=== PATIENT | male | born 2000 | race African-American/Black ===

== ENCOUNTER 2023-10-22 04:32 | Emergency (ER) | payer OTHER ==
--- NOTE | 2023-10-22 04:38 | ED Physician Documentation ---
History of Present Illness - Stated complaint Stated Complaint: SINUS PX, SORE THROAT - Additonal information Additional information: 23-year-old male presents with sinus pain and sore throat. History clarified from triage notes. Patient states that for the last week, he has had mild cough, with sore throat, subjective fever. No trismus, drooling, voice changes, shortness of breath, visual changes or eye pain, ear pain, neck symptoms, photophobia, rash. He has nausea without vomiting. No recent antibiotics. No antibiotic allergies. He states he is overall healthy otherwise. No other new concerns. ROS Constitutional: +subjective fever, no chills Eyes: no visual disturbance, no discharge Ears, Nose, Mouth, Throat: no rhinorrhea, + sore throat Cardiovascular: no chest pain, no palpitations Respiratory: + cough, no shortness of breath Gastrointestinal: no abdominal pain, no vomiting, no diarrhea Genitourinary: no dysuria, no hematuria Musculoskeletal: no back pain, no neck stiffness Skin: no rash, no wound Neurological: no focal weakness, no focal numbness PD PAST MEDICAL HISTORY - Present Medications Home Medications: Ambulatory Orders Medication Instructions Recorded Confirmed Doxycycline [Vibramycin] 100 mg PO BID #14 tablet 10/22/23 Ondansetron Odt [Zofran] 4 mg TL Q6H PRN #10 tablet 10/22/23 - Allergies Allergies/Adverse Reactions: Allergies Allergy/AdvReac Type Severity Reaction Status Date / Time No Known Drug Allergies Allergy Verified 10/22/23 04:50 PD ED PE NORMAL - Free text exam Free text exam: Const: no acute distress, non toxic appearing; calm, conversant, pleasant Head: mild maxillary tenderness bilaterally Eyes: PERRLA, EOMI ENT: uvula midline. +bilateral tonsillar swelling with mild exudate. No edema or swelling of oral cavity including tongue, under tongue, cheeks, submental, sublingual areas. No pain on palpation of throat. No pus or exudate. No drooling. No trismus. No stridor. Bilateral TMs with mild effusion. +Rhinorrhea. Neck: supple, non-tender Resp: no respiratory distress, clear to auscultation bilaterally Card: regular rate and rhythm, no murmurs Abd: non tender diffusely, no rigidity or rebound or guarding Back: no T or L spine tenderness, no CVA tenderness bilaterally Extrem: no deformities, no swelling bilateral lower extremities Neuro: ANOx4, media liaison officer 2-12 intact, intact sensation and strength all extremities, normal coordination Skin: no rash, warm and dry Results - Vitals Vitals: Vital Signs - 24 hr 10/22/23 04:48 Temperature 37 C Heart Rate 82 Respiratory 18 Rate Blood Pressure 153/90 H O2 Saturation 100 Oxygen O2 Source Room air - Labs Labs: Laboratory Tests 10/22/23 10/22/23 04:46 04:46 Nasal Adenovirus (PCR) NOT DETECTED Nasal B. parapertussis DNA (PCR) NOT DETECTED Nasal Coronavir 229E PCR NOT DETECTED Nasal Coronavir HKU1 PCR NOT DETECTED Nasal Coronavir NL63 PCR NOT DETECTED Nasal Coronavir OC43 PCR NOT DETECTED Nasal Enterovir/Rhinovir PCR NOT DETECTED Nasal Influenza B PCR NOT DETECTED Nasal Influenza A PCR NOT DETECTED Nasal Parainfluen 1 PCR NOT DETECTED Nasal Parainfluen 2 PCR NOT DETECTED Nasal Parainfluen 3 PCR NOT DETECTED Nasal Parainfluen 4 PCR NOT DETECTED Nasal RSV (PCR) NOT DETECTED Nasal B.pertussis DNA PCR NOT DETECTED Nasal C.pneumoniae (PCR) NOT DETECTED Zachery Human Metapneumo PCR NOT DETECTED Nasal M.pneumoniae (PCR) DETECTED A Nasal SARS-CoV-2 (PCR) NOT DETECTED Group A Strep Rapid Negative PD Medical Decision Making - ED course ED course: This patients presentation is most suggestive of viral pharyngitis versus strep pharyngitis, sinusitis which could be bacterial at this juncture, less likely mono. Patient fully neurovascularly intact. No meningeal signs. He is well- perfused and overall comfortable. I am obtaining viral swab, strep swab, giving Tylenol and Toradol and Zofran and will closely reassess. Patient understands and agrees with plan. Swabs: GAS negative. Respiratory swab with nasal Mycoplasma pneumoniae. Note patient does not have shortness of breath and has clear lungs, reassuring VS, arguing against pneumonia. Regardless, doxycycline is reasonable. I am initiating and prescribing 7d of BID 100mg PO doxycycline, and also prescribing Zofran. Patient understands need for follow up outpatient for reassessment to ensure symptom resolution. Patient ambulatory and tolerating PO. Exams and vital signs reassuring. Blood pressure is elevated but suitable for outpatient follow up, with no evidence of hypertensive emergency here clinically. Patient questions answered and plan reviewed. Strong return precautions given. Patient discharged. Departure - Departure Disposition: Home, Self Care Clinical Impression: Sinusitis Qualifiers: Sinusitis location: other Chronicity: unspecified Qualified Code(s): J32.9 - Chronic sinusitis, unspecified Pharyngitis Qualifiers: Pharyngitis/tonsillitis etiology: unspecified etiology Qualified Code(s): J02.9 - Acute pharyngitis, unspecified Prescriptions: Doxycycline [Vibramycin] 100 mg PO BID #14 tablet Ondansetron Odt [Zofran] 4 mg TL Q6H PRN #10 tablet PRN Reason: Nausea / Vomiting Comments: It was a pleasure taking care of you today. It is important to fully read and understand the below. Please ask us if you have any questions. Your strep, COVID, flu testing here is negative. However, your tests are positive for a bacteria called Mycoplasma pneumoniae. I am prescribing 1 week of doxycycline, an antibiotic to take twice daily, which should cover this. I am also prescribing Zofran for nausea. You received a dose of NSAIDs and Tylenol here. Do not take more NSAIDs like ibuprofen today. Please see your primary doctor within 3 to 5 days for reassessment. Please immediately return if you worsen. No tests or assessments are perfect, and your condition could globe changer time. If your symptoms change or worsen, it is very important you immediately seek medical care. If you have any new or worsening pain, voice changes, difficulty opening and closing your mouth, drooling, shortness of breath, fever, worsening rash, worsening swelling, vomiting, confusion, numbness, weakness, or anything else that concerns you, please immediately seek medical care. Please follow up on your blood pressure with your primary doctor, as it was elevated here. If you have been prescribed any medications: please read the drug package inserts on how to properly use the medication and any potential side effects. If you had labs (blood tests) or imaging (CT scan or x-rays) done during your visit: please follow up on the results of these with your primary care doctor, as discussed. In addition, please know the results we received today may be preliminary. Our usual practice is to follow up on tests within a few days of a patient's discharge from the Emergency Department and notify you of any changes. These may lead to changes to your treatment plan. However, the best way to obtain and interpret these test results is through your Primary Care Provider. If you need to update your contact information, please stop by the dental front office assistant and alert the Registration personnel before you leave the Emergency Department. Thank you for the opportunity to participate in your healthcare. We are always here and happy to see you in the future. Forms: PCP List
[2023-10-22 04:51] VITALS: BP 153/90; O2SAT 100
[2023-10-22] MEDS: ACETAMINOPHEN 325 MG TABLET PO STA (05:09)
[2023-10-22] MEDS: ONDANSETRON ODT 4 MG TABLET TL STA (05:09)
[2023-10-22] MEDS: KETOROLAC 15 MG/ML VIAL IM STA (05:10)
[2023-10-22 05:20] LABS: RAPID STREP SCREEN Negative (Negative)
[2023-10-22] MEDS: DOXYCYCLINE 100 MG TABLET PO STA (05:45)
[2023-10-22 06:14] LABS: B. PARAPERTUSSIS- RESP PCR PAN NOT DETECTED; B. PERTUSSIS- RESP PCR PANEL NOT DETECTED; C. PNEUMONIAE- RESP PCR PANEL NOT DETECTED; CORONAVIRUS 229E-RESP PCR NOT DETECTED; CORONAVIRUS HKU1-RESP PCR NOT DETECTED; CORONAVIRUS NL63-RESP PCR NOT DETECTED; CORONAVIRUS OC43-RESP PCR NOT DETECTED; HUMAN METAPNEUMOVIRUS NOT DETECTED; INFLUENZA A- RESP PCR PANEL NOT DETECTED; INFLUENZA B - RESP PCR PANEL NOT DETECTED; M. PNEUMONIAE- RESP PCR PANEL DETECTED; PARAINFLUENZA VIRUS 1 NOT DETECTED; PARAINFLUENZA VIRUS 2 NOT DETECTED; PARAINFLUENZA VIRUS 3 NOT DETECTED; PARAINFLUENZA VIRUS 4 NOT DETECTED; RHINOVIRUS/ENTEROVIRUS NOT DETECTED; RSV- RESP PCR PANEL NOT DETECTED; SARS-CoV-2 -RESP PCR PANEL NOT DETECTED
== END 2023-10-22 06:25 | disposition home or self-care (01) ==
LOC: ED 04:32
DX: J32.9 Chronic sinusitis, unspecified (principal); J02.9 Acute pharyngitis, unspecified
CPT/HCPCS: 87070; 87430; 87633; 96372; 99283; A9270; Q0162; 87637